=== PATIENT | female | born 1995 | race African-American/Black ===

== ENCOUNTER → 2017-08-08 | Outpatient (CLI) | payer OTHER ==
[~2017-08-08] MED LIST: PREN1TAB14 PO; TERC.4%V VAGINAL
== END ==
LOC: HPND 13:54
PROVIDERS: ATTEND Obstetrics & Gynecology
DX: O26.842 Uterine size-date discrepancy, second trimester (principal)
CPT/HCPCS: 76805

== ENCOUNTER 2017-08-25 03:12 | Emergency (ER) | payer OTHER ==
[~2017-08-25] VITALS: Ht 172.7 cm; Wt 94.5 kg
[2017-08-25 03:14] VITALS: BP 152/90; PULSE 71; RESP 16; TEMP 98.5; O2SAT 98
[2017-08-25 03:52] VITALS: BP 116/61; PULSE 78; RESP 16
--- NOTE | 2017-08-25 04:37 | PD ---
HPI Chief Complaint: Related Problem Time Seen by Provider: 03:56 Travel History International Travel<30 days: No Contact w/Intl Traveler<30days: No Traveled to known affect area: No History of Present Illness HPI 22-year-old female presents to emergency department by private transportation in the care of her mother for evaluation of vaginal spotting noted upon wiping after urinating this morning around 2 to 2:30 AM. Patient states she is 20 weeks by dates. Patient is under the care of the [facility] [address] obstetric service nurse practitioner Jose and Dr. Francisco. Patient's last menstrual period was 03/21/17 with estimated EDC of 12/31/17 prior to undergoing an ultrasound 08/08/[address] Francisco which identified patient is gestational age by ultrasound 08/08/17 to be 15 weeks 3 days. Based on her ultrasound 08/08/17 as of 08/25/17 she is 18 weeks . Patient states that after noticing some blood on the toilet tissue after wiping this morning she has had no further spotting or bleeding and has no current cramping or discomfort. Patient also denies any fluid leak. Patient denies any dysuria frequency urgency or hematuria. Patient denies any crampy contraction type pain. Patient states she recently started a medication for a yeast infection and has had vaginal pruritus and has been scratching the area and thought perhaps she had scratched her labia. Patient states on , 08/24/17, when she awakened from sleep she had some mild left lower quadrant cramping and after urinating symptoms resolved. Patient has had no reported cramping subsequently. Patient denies any pain at this time; pain 0/10. Patient reports she does not know her blood type and has not yet had a blood type reportedly performed. Patient is currently taking vitamins. Patient is 1 para 0 AB 0. Patient;s EDC after 08/08/17 US 01/27/18. [facility] Past Medical History Narrative Medical Ab0 LMP 03/21/1718 weeks by ultrasound gestational age as of 08/08/17; no tobacco use no alcohol use; nursing notes reviewed Medical History: Denies Significant Hx Tetanus Vaccination: < 5 Years Influenza Vaccination: No ?: LMP: 04/23/17 : 1 Past Surgical History Surgical History: No Previous Surgery Social History Alcohol Use: No Tobacco Use: No Substance Use: No Allergies-Medications (Allergen,Severity, Reaction): Coded Allergies: No Known Allergies (Unverified , 08/25/17) Reported Meds & Prescriptions Reported Meds & Active Scripts Active Terazol 7 Vaginal Cream (Terconazole Vaginal Cream) 0.4 % Cream 1 Appl VAGINAL HS 1 applicatorful intravaginally x 7 nights Pnv Ferrous Fumarate/Docu 29-1 mg ( Vit W/ Docusate-Fe Fu) 29 Mg Iron-1 Mg-25 Mg Tab 1 Caplet PO DAILY 30 Days Review of Systems Except as stated in HPI: all other systems reviewed are Neg General / Constitutional: No: Fever, Chills HENT: No: Congestion Cardiovascular: No: Chest Pain or Discomfort Respiratory: No: Shortness of Breath Gastrointestinal: No: Nausea, Vomiting, Abdominal Pain Genitourinary: Positive: Vaginal Bleeding ("dried blood on tissue" just dredge captain), No: Urgency, Frequency, Dysuria, Pelvic Pain, Flank Pain, Discharge Musculoskeletal: No: Myalgias, Arthralgias Skin: No Rash Neurologic: No: Weakness Psychiatric: No: Anxiety Hematologic/Lymphatic: No: Lymph Node Enlargement Physical Exam Narrative GENERAL: Well-developed well-nourished female no acute distress no respiratory distress SKIN: Warm and dry. HEAD: Normocephalic. EYES: No scleral icterus. No injection or drainage. NECK: Supple, trachea midline. No JVD or lymphadenopathy. CARDIOVASCULAR: Regular rate and rhythm without murmurs, gallops, or rubs. RESPIRATORY: Breath sounds equal bilaterally. No accessory muscle use. GASTROINTESTINAL: Abdomen soft, non-tender, nondistended. Fundal height 1 fingerbreadth above the umbilicus. heart tones 140. Pelvic exam: Limited to bimanual exam no cervical office dilatation no blood on exam glove. Nontender. MUSCULOSKELETAL: No cyanosis, or edema. BACK: Nontender without obvious deformity. No CVA tenderness. Data Data Last Documented VS Vital Signs Date Time Temp Pulse Resp B/P (MAP) Pulse Ox O2 Delivery O2 Flow Rate FiO2 08/25/17 03:52 78 16 116/61 (79) Room Air 08/25/17 03:14 98.5 98 Orders Orders Complete Rh (08/25/17 03:56) Urinalysis - C+S If Indicated (08/25/17 03:56) Ed Discharge Order (08/25/17 05:39) Labs Laboratory Tests Test 08/25/17 04:20 Urine Color YELLOW Urine Turbidity CLEAR Urine pH 5.5 Urine Specific [place] 1.020 Urine Protein NEG mg/dL Urine Glucose (UA) NEG mg/dL Urine Ketones NEG mg/dL Urine Occult Blood SMALL Urine Nitrite NEG Urine Bilirubin NEG Urine Leukocyte Esterase TRACE Urine RBC 0-3 /hpf Urine WBC 3-5 /hpf Urine Squamous Epithelial Cells 0-5 /hpf Urine Bacteria RARE /hpf Microscopic Urinalysis Comment CULT NOT INDICATED MDM Medical Decision Making Medical Screen Exam Complete: Yes Emergency Medical Condition: Yes Medical Record Reviewed: Yes Interpretation(s) UA: rare bacteria, small blood, trace leuk esterase; cx not indicated RH: (A+) Differential Diagnosis UTI, premature labor, labial trauma Narrative Course Review of medical records identifies patient underwent diagnostic center referral for ultrasound to evaluate for size and gestational age 108/08/17 which was consistent with patient being 15 weeks 3 days 08/08/17; prior to this she was seen in the clinic for visit, 08/02/17 by Marly Sanchez for routine new OB patient visit. At that time on pelvic exam uterus was 13 week size. Patient was started on vitamins. Call placed to OB ED and patient's case discussed with OB ED concrete block molder Dr Pop patient's presentation exam and medical record information specifically ultrasound 08/08/17 gestational age 15 weeks 3 days consistent with patient being [address] Pop patient to be given instructions regarding bleeding precautions pelvic rest and recommendation for increase hydration. Patient is to contact her managing DAYCARE WORKER service. Patient is return immediately to the emergency department for any recurrent or heavy bleeding consistent with menses quantity. This is shared with the patient and patient again states she has not had any further spotting or bleeding and it was a small amount much less than a menstrual cycle no clots no tissue. Patient denies any pain discomfort at this time is 0/10. Urine specimen ordered along with complete Rh. After obtaining verbal consent patient placed in optimal position using curvilinear probe in the transverse and longitudinal views single IUP with active fetus heart rate 140 identified by the undersigned. @ 5:40 AM (A+) remains asymptomatic ; pain 0/10, no spotting or bleeding; aware of need for close OB follow up. Physician Communication Physician Communication discussed with DR Pop --no monitoring as US gestational age c/ 18 weeks today --pelvic rest hydration bleeding precautions and OB follow up Diagnosis Primary Impression: Qualified Codes: Z3A.18 - 18 weeks gestation of Referrals: Braid Maker 1 day Patient Instructions: General Instructions Departure Forms: Tests/Procedures, Work Release Special Instructions: no work x 1 day Additional Instructions: Increase fluid hydration No work 1 day Pelvic rest until evaluated by her concrete block molder Follow up with concrete block molder call office in a.m. to schedule follow-up appointment Continue vitamins Return immediately to the nearest emergency department for vaginal bleeding vaginal bleeding consistent with menses pain or any concerns May take acetaminophen/Tylenol per package directions as needed for discomfort or fever 100.4F or greater Disposition: 01 DISCHARGE HOME Condition: Stable Bela Love MD Aug 25, 2017 04:37
[2017-08-25 04:40] LABS: BILIRUBIN, URINE NEG (NEG); BLOOD, URINE SMALL (NEG); GLUCOSE,URINE NEG (NEG); KETONE, URINE NEG (NEG); NITRITE,URINE NEG (NEG); PH, URINE 5.5 (5.0-8.5); URINE LEUKOCYTE ESTERASE TRACE (NEG)
[2017-08-25 04:55] LABS: URINE COLOR YELLOW (YELLW/STRAW)
[2017-08-25 04:56] LABS: BACTERIA, URINE RARE /hpf; RBC, URINE 0-3 /hpf (0-3); SQUAMOUS EPITHELIAL CELL URINE 0-5 /hpf (0-5)
[2017-08-25 05:51] VITALS: BP 142/77
== END 2017-08-25 05:56 | disposition home or self-care (01) ==
LOC: PHED 03:12
DX: O26.852 Spotting complicating pregnancy, second trimester (principal); Z3A.18 18 weeks gestation of pregnancy
CPT/HCPCS: 81001; 86901; 99284

== ENCOUNTER → 2017-09-12 | Outpatient (CLI) | payer OTHER | LOC: HPND 13:53 | PROVIDERS: ATTEND Obstetrics & Gynecology | DX: O26.842 Uterine size-date discrepancy, second trimester (principal); Z36.2 Encounter for other antenatal screening follow-up | CPT/HCPCS: 76816 ==

== ENCOUNTER → 2017-10-24 | Outpatient (CLI) | payer OTHER | LOC: HPND 12:56 | PROVIDERS: ATTEND Obstetrics & Gynecology | DX: Z36.2 Encounter for other antenatal screening follow-up (principal) | CPT/HCPCS: 76816 ==

== ENCOUNTER 2018-01-24 17:40 | Inpatient (IN) ==
[2018-01-24] MEDS ORDERED: Sodium Chlor 0.9% Inj 500 ML IV.SIG PRN (18:24)
[2018-01-24] MEDS ORDERED: fentaNYL Citrate Inj 100 MCG/2 ML Ampul IV.PUSH PRN ×2 (18:24)
[2018-01-24] MEDS ORDERED: Oxytocin 30 Units/500ml Premix 30 UNITS/500 ML BAG IV.SIG ONE (18:24)
[2018-01-24] MEDS ORDERED: Naloxone Inj 0.4 MG/ML Vial IV.PUSH PRN (18:24)
[2018-01-24] MEDS ORDERED: Sod Chloride 0.9% Inj 1,000 ML IV.CONT PRN (18:24)
[2018-01-24] MEDS ORDERED: Citric Acid/Sodium Citrate Liq 30 ML UDC PO SCH (18:30)
--- NOTE | 2018-01-24 19:00 | P.HPOB ---
History of Present Illness Primary Care Physician: NOT REQUIRED Dr. Rikki Amado Chief Complaint: Hypertension contractions History of Present Illness: Patient is a 22-year-old white female at 39 weeks [facility] and is referred here by [facility] hypertension noted there in their clinic. Blood pressure there was 160/100. Her on OB ED her blood pressures in the 140s over 80s Weeks Gestation:: 39 Para: 0 : 1 - Inpatient Certification I certify that the inpatient services were ordered in accordance with Medicare regulations governing the order. This includes certification that hospital inpatient services are reasonable and necessary and in the case of services not specified as inpatient-only under 42 CFR 419.22(n), that they are appropriately provided as inpatient services in accordance to with the 2-midnight benchmark under 43 CFR 412.3(e) Estimated Total Length of Stay (Days): 3 Plans for Post Hospital Care: Home Review of Systems Constitutional: Denies anorexia, Denies body ache(s), Denies chills, Denies daytime sleepiness, Denies excessive sweating, Denies fatigue, Denies fever(s), Denies headache(s), Denies increased appetite, Denies lack of energy, Denies malaise, Denies night sweats, Denies weakness, Denies weight gain, Denies weight loss, Denies other Cardiovascular: Denies chest pain, Denies chest pain at rest, Denies chest pain with activity, Denies excessive sweating, Denies fainting, Denies fast heart rate, Denies foot swelling, Denies generalized swelling, Denies irregular heart rhythm, Denies leg pain with activity, Denies leg sores, Denies leg swelling, Denies lightheadedness, Denies radiating jaw, neck or arm pain, Denies rapid, pounding, or irregular heartbeat, Denies shortness of breath, Denies shortness of breath with activity, Denies shortness of breath when lying down, Denies shortness of breath causing sudden awakening, Denies slow heart rate, Denies other Respiratory: Denies change in phlegm color, Denies chest congestion, Denies cough, Denies coughing up blood, Denies excessive phlegm production, Denies pain on inspiration, Denies pain with cough, Denies shortness of breath, Denies shortness of breath with activity, Denies snoring, Denies stridor, Denies wheezing, Denies other Gastrointestinal: Denies abdominal pain, Denies belching, Denies black, tarry stools, Denies bloating, Denies bright, red blood in stools, Denies change in bowel habits, Denies constant urge to pass stool, Denies change in stools, Denies coffee ground vomit, Denies constipation, Denies cramping, Denies difficulty swallowing, Denies excessive passing of gas, Denies feeling full early, Denies heartburn, Denies incontinent of stools, Denies loose stools, Denies nausea, Denies pain with swallowing, Denies vomiting, Denies vomiting blood, Denies other Genitourinary: Denies abnormal periods, Denies abnormal vaginal bleeding, Denies absent period, Denies bleeding between periods, Denies blood in urine, Denies difficulty starting urination, Denies difficulty urinating, Denies dribbling after urination, Denies frequent nighttime urination, Denies genital itching, Denies genital lesions, Denies heavy periods, Denies hot flashes, Denies light periods, Denies nipple discharge, Denies painful intercourse, Denies painful periods, Denies painful urination, Denies pelvic pain, Denies prolapse symptoms, Denies sexual problems, Denies side pain, Denies urinary incontinence, Denies urinary urgency, Denies vaginal discharge, Denies vaginal dryness, Denies vaginal odor, Denies vaginal itching, Denies other Musculoskeletal: Reports joint swelling Neurologic: Denies abnormal hearing, Denies abnormal movements, Denies abnormal speech, Denies abnormal walking, Denies behavioral changes, Denies burning sensations, Denies confusion, Denies dizziness, Denies fainting, Denies frequent falls, Denies headache(s), Denies lack of coordination, Denies localized weakness, Denies loss of vision, Denies memory loss, Denies numbness, Denies other visual disturbances, Denies radiating pain, Denies restless legs, Denies convulsions, Denies seizure-like activity, Denies sensory deficit, Denies tingling, Denies tingling/numbness/burning sensations, Denies tremor(s), Denies unsteadiness, Denies weakness, Denies other PMFSH - History History Provided By: Patient - Surgical History Surgical History: Surgical History (Last Updated 01/12/18 @ 16:44 by Yuni Castaneda MD, R1) H/O hand surgery - Tobacco History Smoking Status: Never smoker - Alcohol History How Often Do You Have a Drink Containing Alcohol: Never - Substance Use History Substance History: No History of Abuse Medications and Allergies Active Medications: Active Medications Citric Acid/Sodium Citrate (Sodium Citrate/Citric Acid Liq) 30 ml PO ROLLING MACHINE TENDER [facility] Stop: 01/28/18 18:29 Fentanyl Citrate (Fentanyl Inj) 50 mcg IV.PUSH Q1H PRN PRN Reason: Pain Scale 3 - 5 Fentanyl Citrate (Fentanyl Inj) 100 mcg IV.PUSH Q1H PRN PRN Reason: PAIN SCALE 6 TO 10 Lactated Ringer's (Lr 1000 Ml Inj) 1,000 mls @ 125 mls/hr IV.CONT .Q8H [facility] Last Admin: 01/24/18 18:30 Dose: 125 mls/hr Lactated Ringer's (Lr 1000 Ml Inj) 1,000 mls @ 3,000 mls/hr IV.SIG UNSCH PRN PRN Reason: compromise or epidural Sodium Chloride (Ns Inj) 500 mls @ 1,000 mls/hr IV.SIG UNSCH PRN PRN Reason: SEE LABEL COMMENTS Sodium Chloride (Ns Inj) 1,000 mls @ 100 mls/hr IV.CONT .Q10H PRN PRN Reason: SEE LABEL COMMENTS Oxytocin (Pitocin 30 Units/Ns 500 Ml Premix) 30 units in 500 mls @ 999 mls/hr IV.SIG BOLUS ONE Stop: 01/24/18 18:54 Lidocaine HCl (Xylocaine 1% Inj) 0.1 ml I-DERMAL PRN PRN PRN Reason: For IV start Stop: 01/27/18 18:23 Lidocaine HCl (Xylocaine 1% Inj) 10 ml INFILTRATN PRN PRN PRN Reason: For episiotomy repair Stop: 01/26/18 18:23 Mineral Oil (Muri-Lube Oil) 10 ml TOPICAL PRN PRN PRN Reason: PRN perineal massage Naloxone HCl (Narcan Inj) 0.1 mg IV.PUSH Q2M PRN PRN Reason: for opiate reversal Ondansetron HCl (Zofran Inj) 4 mg IV.PUSH Q6H PRN PRN Reason: NAUSEA OR VOMITING Allergies Allergy/AdvReac Type Severity Reaction Status Date / Time diphenhydramine Allergy Mild Rash Verified 01/24/18 18:47 [From Benadryl] Exam Vital signs: Vital Signs 01/24/18 18:03 01/24/18 18:15 Temperature 98.1 F Pulse Rate 98 H Respiratory Rate 16 Blood Pressure 142/86 H - Constitutional no acute distress - Routine HEENT Exam Head: Present: normocephalic, atraumatic Eye: Present: PERRL - Routine Respiratory Exam Present: CTA bilaterally - Routine Cardiovascular Exam Present: RRR - Routine Abdominal Exam Present: soft Comments: Size equal dates - Routine Exam Comments: Cervix is 4-5 cm/90/1/vertex - Routine Extremities Exam Present: edema - Routine Neurological Exam Present: alert, oriented X3, CN II-XII intact Results - Labs Labs: 1+ protein on urine dip Caprini VTE Risk Assessment Caprini VTE Risk Assessment: No/Low Risk (score <= 1) Caprini Risk Assessment Model: Point Value = 1 Point Value = 2 Point Value = 3 Point Value = 5 Age 41-60 Minor surgery BMI > 25 kg/m2 Swollen legs Varicose veins or History of unexplained or recurrent spontaneous Oral contraceptives or hormone replacement Sepsis (< 1 month) Serious lung disease, including pneumonia (< 1 month) Abnormal pulmonary function Acute myocardial infarction Congestive heart failure (< 1 month) History of inflammatory bowel disease Medical patient at bed rest Age 61-74 Arthroscopic surgery Major open surgery (> 45 min) Laparoscopic surgery (> 45 min) Malignancy Confined to bed (> 72 hours) Immobilizing plaster cast Central venous access Age >= 75 History of VTE Family history of VTE Factor V Leiden Prothrombin [id number] Lupus anticoagulant Anticardiolipin antibodies Elevated serum homocysteine Heparin-induced thrombocytopenia Other congenital or acquired thrombophilia Stroke (< 1 month) Elective arthroplasty Hip, pelvis, or leg fracture Acute spinal cord injury (< 1 month) Prophylaxis Regimen: Total Risk Factor Score Risk Level Prophylaxis Regimen 0-1 Low Early ambulation 2 Moderate Order ONE of the following: *Sequential Compression Device (SCD) *Heparin 5000 units SQ BID 3-4 Higher Order ONE of the following medications: *Heparin 5000 units SQ TID *Enoxaparin/Lovenox 40 mg SQ daily (WT < 150 kg, CrCl > 30 mL/min) *Enoxaparin/Lovenox 30 mg SQ daily (WT < 150 kg, CrCl > 10-29 mL/min) *Enoxaparin/Lovenox 30 mg SQ BID (WT < 150 kg, CrCl > 30 mL/min) AND/OR *Sequential Compression Device (SCD) 5 or more Highest Order ONE of the following medications: *Heparin 5000 units SQ TID (Preferred with Epidurals) *Enoxaparin/Lovenox 40 mg SQ daily (WT < 150 kg, CrCl > 30 mL/min) *Enoxaparin/Lovenox 30 mg SQ daily (WT < 150 kg, CrCl > 10-29 mL/min) *Enoxaparin/Lovenox 30 mg SQ BID (WT < 150 kg, CrCl > 30 mL/min) AND *Sequential Compression Device (SCD) Assessment and Plan - Diagnosis (1) Gestational hypertension affecting first Code(s): O13.9 - Gestational [-induced] hypertension without significant proteinuria, unspecified trimester Status: Acute (2) Uterine contractions during Code(s): O62.2 - Other uterine inertia Status: Acute - Plan Plan for the patient is admission to the hospital, check PIH lab, manage and augment labor as needed anticipate vaginal delivery, if pressures are elevated persistently would then render magnesium sulfate IV
[2018-01-24 19:05] LABS: Amphetamine Screen,Urine Neg (Neg); Barbiturate Screen,Urine Neg (Neg); Cannabinoid Screen,Urine Neg (Neg); Cocaine Screen,Urine Neg (Neg); Protein/Creatinine Ratio,Urine 0.22 (0.00-0.14)
[2018-01-24 19:06] LABS: Bacteria,Urine Rare /hpf; Bilirubin,Urine Negative (Negative); Clarity,Urine Hazy (Clear); Color,Urine Yellow (Yellw/Straw); Glucose,Urine (UA) Negative (Negative); Leukocyte Esterase,Urine Negative (Negative); Mucus,Urine Few /lpf (Occasional); Nitrite,Urine Negative (Negative); Specific Gravity,Urine 1.018 (1.002-1.035); Squamous Epithelial Cell,Urine 4 /hpf (0-5)
[2018-01-24] MEDS ORDERED: Penicillin G Potassium Inj 5,000,000 UNIT in Sodium Chloride 0.9% Inj 100 ML IV.SIG ONE (19:25)
[2018-01-24 19:27] LABS: Baso % (Auto) 0.1 % (0.0-2.0); Eos % (Auto) 0.2 % (0.0-4.0); Hematocrit 34.1 % (35.0-46.0); Hemoglobin 11.7 gm/dL (11.6-15.3); Lymph % (Auto) 14.7 % (9.0-44.0); Mean Corpuscular HGB Conc 34.3 % (32.0-36.0); Mean Corpuscular Hemoglobin 29.9 pg (27.0-34.0); Mean Corpuscular Volume 87.3 fL (80.0-100.0); Mean Platelet Volume 8.8 fL (7.0-11.0); Mono # (Auto) 0.6 th/mm3 (0.0-0.9); Mono % (Auto) 4.7 % (0.0-8.0); Neut % (Auto) 80.3 % (16.0-70.0); Platelet Count 299 th/mm3 (150-450); Red Cell Distribution Width 12.8 % (11.6-17.2); White Blood Count 13.7 th/mm3 (4.0-11.0)
[2018-01-24 19:34] LABS: Opiate Screen,Urine Neg (Neg)
[2018-01-24] MEDS ORDERED: Oxytocin 30 Units/500ml Premix 30 UNITS/500 ML BAG IV.SIG PRN (19:34)
[2018-01-24 20:22] LABS: Amphetamine Urine With Conf Neg (Neg); Benzodiazepine Urine With Conf Neg (Neg)
[2018-01-24 23:35] LABS: Alanine Aminotransferase 21 U/L (10-53); Albumin 2.7 g/dL (3.4-5.0); Anion Gap 10 meq/L (5-15); Aspartate Aminotransferase 15 U/L (15-37); Blood Urea Nitrogen 11 mg/dL (7-18); Calcium 8.4 mg/dL (8.5-10.1); Carbon Dioxide 22.2 meq/L (21.0-32.0); Chloride 108 meq/L (98-107); Glomerular Filtration Rate Greater Than 89 mL/min (>89); Glucose,Random 80 mg/dL (74-106); Potassium 3.7 meq/L (3.5-5.1); Sodium 140 meq/L (136-145)
[2018-01-24 23:37] LABS: Alkaline Phosphatase 153 U/L (45-117); Total Protein 7.4 g/dL (6.4-8.2)
[2018-01-24] MEDS ORDERED: fentaNYL 2MCG-Bupiv 0.125% Epi 150 ML EPIDURAL ONE (23:40)
[2018-01-24] MEDS ORDERED: Bupivacaine PF 0.25% Inj 10 ML Vial ONE (23:45)
[2018-01-25] MEDS ORDERED: Penicillin G Potassium Inj 2,500,000 UNIT in Sodium Chlor 0.9% Inj 100 ML IV.SIG SCH ×2
[2018-01-25] MEDS ORDERED: fentaNYL 2MCG-Bupiv 0.125% Epi 150 ML EPIDURAL PRN (00:43)
[2018-01-25] MEDS ORDERED: fentaNYL Citrate Inj 100 MCG/2 ML Ampul EPIDURAL ONE (00:43)
--- NOTE | 2018-01-25 05:22 | P.OBDELI ---
Weeks Gestation: 39 Patient Started Active Labor: No Medical Induction of Labor: Yes Medical Induction Start Date: 01/24/18 Artificial Rupture of Membrane: Yes Artificial ROM Date: 01/24/18 Anesthesia: Epidural Episiotomy: midline Vaginal Delivery: Normal Presentation: Occiput anterior Nuchal Cord: None Delayed Cord Clamping (45 sec): Yes Placenta: Spontaneous delivery, Intact, 3 vessel cord Laceration: Episiotomy Repair: Vicryl running Estimated blood loss (mL): 400 : Male Male A Infant Delivery Date: 01/25/18 Weight: 3.99 kg score (1 min): 8 score (5 min): 9
[2018-01-25] MEDS ORDERED: Zolpidem Tartrate 5 MG Tablet PO PRN (05:25)
[2018-01-25] MEDS ORDERED: Bisacodyl 10 MG Supp RECTAL PRN (05:25)
[2018-01-25] MEDS ORDERED: Naloxone Inj 0.4 MG/ML Vial IV.PUSH PRN (05:25)
[2018-01-25] MEDS ORDERED: Oxytocin 30 Units/500ml Premix 30 UNITS/500 ML BAG IV.CONT SCH (05:30)
[2018-01-25] MEDS: Witch Hazel 50%/Glyderin 12.5% 40 Pad Jar RECTAL PRN (11:57)
[2018-01-25] MEDS: Ibuprofen 400 MG Tablet PO PRN ×2 (11:58→21:15)
[2018-01-25] MEDS: Benzocaine 20% Top Spray 60 ML Can TOPICAL PRN (11:58)
[2018-01-25] MEDS: Acetaminophen 325 MG Tablet PO PRN ×2 (11:58→16:05)
[2018-01-25] MEDS: Senna/Docusate Sodium 8.6/50 MG Tablet PO SCH ×3 (13:42→21:15)
[2018-01-25] MEDS ORDERED: Diphtheria/Tetanus/Pertussis Vaccine Inj 0.5 ML Syringe IM ONE (16:00)
[2018-01-25] MEDS ORDERED: Measles/Mumps/Rubella Vaccine Inj 0.5 ML Vial SQ ONE (16:00)
[2018-01-26] MEDS: Ibuprofen 400 MG Tablet PO PRN (06:14)
[2018-01-26] MEDS: Senna/Docusate Sodium 8.6/50 MG Tablet PO SCH (08:18)
--- NOTE | 2018-01-26 08:52 | P.PNOB ---
Subjective Post day: 1 Interval history: Ms. Solis had no acute events overnight. BP has been wnl except for 140/86 at 8 PM last night and 137/92 this morning. Pain is controlled, taking p.o. without nausea, voiding, and flatus but no BM, limited ambulation. States that bleeding is same as a period with no clots. Plans to bottle feed. Undecided about control. Denies chest pain, shortness of breath, nausea, vomiting, diarrhea, dizziness, and DVT pain. All questions answered. Objective Vital Signs/I&O: Vital Signs 01/25/18 20:00 01/26/18 07:42 Temperature 98.3 F 97.6 F Pulse Rate 89 90 Respiratory Rate 18 20 Blood Pressure 140/86 137/92 H Result Diagrams: 01/24/18 18:30 01/24/18 18:30 Objective Remarks: GENERAL: Well-nourished, well-developed patient in NAD. CARDIOVASCULAR: Regular rate and rhythm without murmurs, gallops, or rubs. RESPIRATORY: Breath sounds equal bilaterally. No accessory muscle use. ABDOMEN/GI: Abdomen soft, appropriately tender. Fundus: Firm, non-tender at umbilicus. GENITOURINARY: Light to moderate bleeding. EXTREMITIES: No cyanosis or edema, non-tender, without signs of DVT. Medications and IVs: Active Medications Acetaminophen (Tylenol) 650 mg PO Q4H PRN PRN Reason: PAIN SCALE 1 TO 2 Last Admin: 01/25/18 16:05 Dose: 650 mg Al Hydroxide/Mg Hydroxide (Milk Of Magnmonika Liq) 30 ml PO Q12H PRN PRN Reason: Mild Constipation Benzocaine (Americaine 20% [place]) 1 spray TOPICAL Q4H PRN PRN Reason: For Perineum Discomfort Last Admin: 01/25/18 11:58 Dose: 1 spray Bisacodyl (Dulcolax Supp) 10 mg RECTAL DAILY PRN PRN Reason: SEVERE CONSITIPATION Penicillin G Potassium 2,500, (000 unit/ Sodium Chloride) 100 mls @ 200 mls/hr IV.SIG Q4H [facility] Last Admin: 01/24/18 23:19 Dose: 200 mls/hr Oxytocin (Pitocin 30 Units/Ns 500 Ml Premix) 30 units in 500 mls @ 2 mls/hr IV.SIG TITRATE PRN; Protocol PRN Reason: For induction of labor Last Admin: 01/24/18 20:21 Dose: 2 milliunit/min, 2 mls/hr Fentanyl/Bupivacaine/Sodium Chlor (Fentanyl 2 Mcg-Bupiv 0.125% Epi) 150 mls @ 12 mls/hr EPIDURAL PRN PRN PRN Reason: for Labor Pain Lactulose (Lactulose Liq) 30 ml PO DAILY PRN PRN Reason: SEVERE CONSITIPATION Naloxone HCl (Narcan Inj) 0.1 mg IV.PUSH Q2M PRN PRN Reason: for opiate reversal Ondansetron HCl (Zofran Odt) 4 mg PO Q6H PRN PRN Reason: NAUSEA OR VOMITING Senna/Docusate Sodium (Kristi-Colace) 1 tab PO BID [facility] Last Admin: 01/26/18 08:18 Dose: 1 tab Sennosides (Senokot) 17.2 mg PO Q12H PRN PRN Reason: Moderate Constipation Sodium Chloride (Ns Flush) 2 ml IV.FLUSH BID [facility] Sodium Chloride (Ns Flush) 2 ml IV.FLUSH PRN PRN PRN Reason: FLUSH AFTER USING IV ACCESS Witch Gia/Glycerin (Tucks Pads) 1 applicatio RECTAL QID PRN PRN Reason: HEMORRHOIDS Last Admin: 01/25/18 11:57 Dose: 1 applicatio Zolpidem Tartrate (Ambien) 5 mg PO HS PRN PRN Reason: SLEEP Assessment and Plan - Plan 22 YO at PPD#1 following 39/5 weeks gestation. Meeting goals with BP controlled. Bleeding same as a period. Bottle feeding. Deciding contraception options. Physical exam benign. 1. Routine care -Tylenol and Motrin PRN for pain -Vitals with BP checks q4h -Advised pelvic rest for 6 weeks -Advised showers; no baths for 2 weeks -Pt deciding contraception options -Pt to get BP check at PCP office in 1 week -Pt to follow up with PLUM[employer]SEMBLER in 6 weeks 2. PIH -Vital signs q4h as above -Goal BPs SBP <140 and/or DBP <90 -Treat elevated BP if SBP >150 and/or DBP >100 Dispo: likely 01/27/18 JUNI Patterson
--- NOTE | 2018-01-27 08:15 | P.PNOB ---
Subjective Post day: 2 Interval history: Patient is a 22-year-old delivered at 39 weeks and 5 days. Patient is day 2 after . Patient's pain is well-controlled. Patient reports eating and drinking without any nausea or vomiting. Patient reports minimal bleeding. Patient has passed gas and bowel movements. Patient is walking without lower extremity pain or shortness of breath. Patient will determine contraception options at a later date. Objective Vital Signs/I&O: Vital Signs 01/26/18 20:00 Temperature 98.2 F Pulse Rate 80 Respiratory Rate 20 Blood Pressure 151/86 H Result Diagrams: 01/24/18 18:30 01/24/18 18:30 Objective Remarks: GENERAL: Well-nourished, well-developed patient. CARDIOVASCULAR: Regular rate and rhythm without murmurs, gallops, or rubs. RESPIRATORY: Breath sounds equal bilaterally. No accessory muscle use. ABDOMEN/GI: Abdomen soft, non-tender. Fundus: Firm, non-tender at umbilicus. GENITOURINARY: Light to moderate bleeding. EXTREMITIES: No cyanosis or edema, non-tender, without signs of DVT. Medications and IVs: Active Medications Acetaminophen (Tylenol) 650 mg PO Q4H PRN PRN Reason: PAIN SCALE 1 TO 2 Last Admin: 01/25/18 16:05 Dose: 650 mg Al Hydroxide/Mg Hydroxide (Milk Of Billy Peters) 30 ml PO Q12H PRN PRN Reason: Mild Constipation Benzocaine (Americaine 20% [place]) 1 spray TOPICAL Q4H PRN PRN Reason: For Perineum Discomfort Last Admin: 01/25/18 11:58 Dose: 1 spray Bisacodyl (Dulcolax Supp) 10 mg RECTAL DAILY PRN PRN Reason: SEVERE CONSITIPATION Penicillin G Potassium 2,500, (000 unit/ Sodium Chloride) 100 mls @ 200 mls/hr IV.SIG Q4H MUKUL Last Admin: 01/24/18 23:19 Dose: 200 mls/hr Oxytocin (Pitocin 30 Units/Ns 500 Ml Premix) 30 units in 500 mls @ 2 mls/hr IV.SIG TITRATE PRN; Protocol PRN Reason: For induction of labor Last Admin: 01/24/18 20:21 Dose: 2 milliunit/min, 2 mls/hr Fentanyl/Bupivacaine/Sodium Chlor (Fentanyl 2 Mcg-Bupiv 0.125% Epi) 150 mls @ 12 mls/hr EPIDURAL PRN PRN PRN Reason: for Labor Pain Lactulose (Lactulose Liq) 30 ml PO DAILY PRN PRN Reason: SEVERE CONSITIPATION Naloxone HCl (Narcan Inj) 0.1 mg IV.PUSH Q2M PRN PRN Reason: for opiate reversal Ondansetron HCl (Zofran Odt) 4 mg PO Q6H PRN PRN Reason: NAUSEA OR VOMITING Senna/Docusate Sodium (Kristi-Colace) 1 tab PO BID MUKUL Last Admin: 01/26/18 08:18 Dose: 1 tab Sennosides (Senokot) 17.2 mg PO Q12H PRN PRN Reason: Moderate Constipation Sodium Chloride (Ns Flush) 2 ml IV.FLUSH BID MUKUL Sodium Chloride (Ns Flush) 2 ml IV.FLUSH PRN PRN PRN Reason: FLUSH AFTER USING IV ACCESS Witch Gia/Glycerin (Tucks Pads) 1 applicatio RECTAL QID PRN PRN Reason: HEMORRHOIDS Last Admin: 01/25/18 11:57 Dose: 1 applicatio Zolpidem Tartrate (Ambien) 5 mg PO HS PRN PRN Reason: SLEEP Assessment and Plan - Plan 22 YO at PPD#2 following 39/5 weeks gestation. Meeting goals with BP controlled. Bleeding same as a period. Bottle feeding. Deciding contraception options at a later date. Physical exam benign. 1. Routine care -Tylenol and Motrin PRN for pain -Vitals with BP checks q4h -Advised pelvic rest for 6 weeks -Advised showers; no baths for 2 weeks -Pt deciding contraception options -Pt to get BP check at PCP office in 1 week -Pt to follow up with [facility] in 6 weeks 2. PIH -Vital signs q4h as above -Goal BPs SBP <140 and/or DBP <90 -Blood pressure overnight as high as 151/80 -We will discharge on labetalol 200 mg p.o. every 12 hours. Follow-up with OB in 1 week Dispo: Discharged on 01/[address] De Santiago - Attending Attestation case reviewed with residents. agree with plan above.
[2018-01-27 08:17] VITALS: BP 138/75; PULSE 78; RESP 18
[2018-01-27 08:18] VITALS: TEMP 98
[2018-01-27] MEDS: Witch Hazel 50%/Glyderin 12.5% 40 Pad Jar RECTAL PRN (13:05)
[2018-01-27] MEDS: Benzocaine 20% Top Spray 60 ML Can TOPICAL PRN (13:06)
== END 2018-01-27 13:10 | disposition home or self-care (01) ==
LOC: HOBED 17:40 → H2E 18:23 → H1EA 01-25 07:54
PROVIDERS: ADMIT Obstetrics & Gynecology Maternal & Fetal Medicine; ATTEND Obstetrics & Gynecology Maternal & Fetal Medicine
DX: Z3A.39 39 weeks gestation of pregnancy; O62.2 Other uterine inertia; O13.4 Gestational [pregnancy-induced] hypertension without significant proteinuria, complicating childbirth; Z37.0 Single live birth